=== PATIENT | female | born 1965 | race Caucasian/White ===

== ENCOUNTER → 2017-09-21 10:29 | Outpatient (CLI) | payer MEDICARE, MEDICAID, SELFPAY ==
--- NOTE | 2017-09-21 | CA_ITS ---
PROCEDURE: 2-D M-mode and color Doppler study INDICATIONS FOR THE TEST: Chest pain COPD Heart MurmurX Tobacco SmokingX Palpitations Fatigue Syncope Edema HypertensionXDiabetes Mellitus Rheumatic Fever SOB TONY Obesity Hyperlipidemia Family History HD Additional History PATIENT INFORMATION HEIGHT: 70 WEIGHT:141 GENDER: Female B/P:138/84 2-D/M-MODE INTERPRETATION: 2-D MEASUREMENTS OBSERVED VALUES IN CMS Right Ventricular Dimension (RVDd) 1.2 Interventricular Septum (Thickness)(IVsd) 1.1 Left Ventricular Internal Dimensions(LVIDd) 4.0 Left Ventricular Posterior Wall (Thickness)(LVPWd) 1.1 Aortic Root 3.4 Aortic Cusp Separation 1.5 Left Atrial Dimensions (no significant pericardial 3.3 2D 1. Left atrium is mildly enlarged, left ventricle is normal size, there is mild qualitative concentric left ventricular hypertrophy, visually estimated ejection fraction 55% with no obvious regional motion abnormality. 2. The right atrium and right ventricle are normal size and contractility. 3. The aortic valve is minimally thickened and fibrosed. 4. The mitral valve has mitral annular calcification, there is no mitral stenosis 5. The tricuspid valve is structurally normal. 6. No significant pericardial effusion noted. DOPPLER INTERROGATION: Doppler interrogation of the aortic, mitral and tricuspid valve reveals presence of mild mitral and moderate tricuspid regurgitation, calculated right ventricular systolic pressure is 46 mmHg consistent with moderate pulmonary hypertension, grade 1 diastolic dysfunction seen without tissue Doppler evidence of raised left atrial pressure. CONCLUSION: 1. Mildly enlarged left atrium, normal left ventricular size, mild qualitative concentric left ventricular hypertrophy, visually estimated ejection fraction 55% with no obvious regional wall motion abnormality, grade 1 diastolic dysfunction seen without tissue Doppler evidence of raised left atrial pressure. 2. Mild mitral and moderate tricuspid regurgitation, calculated right ventricular systolic pressure is 46 mmHg consistent with moderate pulmonary hypertension. 3. No significant pericardial effusion noted.
== END ==
PROVIDERS: PCP Family Medicine; Visit Provider Family Medicine
DX: R01.1 Cardiac murmur, unspecified (principal); I47.1 Supraventricular tachycardia
CPT/HCPCS: 93306

== ENCOUNTER → 2017-12-19 09:30 | Outpatient (CLI) | payer MEDICARE, MEDICAID, SELFPAY ==
--- NOTE | 2017-12-19 09:34 | US_ITS ---
US Arterial Ankle Brachial Ind History: ITS.REASON: claudication, leg pain, peripheral vascular disease, smoker ORDERING PHYSICIAN: Rafael Bangura MD PATIENT AGE: 52 years TECHNIQUE: Segmental pressures obtained of both right and left leg. These are compared to brachial blood pressure to yield index at each level sampled including summary DONALD. The data sheets from the procedure are available in PACS FINDINGS Rest study only performed today No prior studies available for comparison. Blood pressures reported are in millimeters mercury. RIGHT LEG DONALD = 1.2. RIGHT LEG TBI=0.6 Brachial BP: 126 Thigh BP: 138 Calf BP: 144 Ankle PT: 157 Ankle DP : 145 Digit =80 LEFT LEG DONALD = 1.0 LEFT LEG TBI= 0.5 Brachial BPD: 133 Thigh BP: 110 Calf BP: 111 Ankle PT:133 Ankle DP: 132 Digit = 66 Pulses and waveforms: Normal IMPRESSION: The ABIs as reported above are within normal limits. Waveforms and pulses are also unremarkable. The TBI's are somewhat low which may indicate small vessel disease
--- NOTE | 2017-12-19 10:04 | NM_ITS ---
History and Indications: Hypertension, tobacco use, chest pain, shortness of breath and abnormal EKG Procedure: Patient received a 0.4 mg of Lexiscan, resting heart rate was 74 bpm resting blood pressure 170/85, Lexiscan maximum heart rate achieved was 81 minute less than 85% of the maximum predicted heart rate and a blood pressure was 227/110. With Lexiscan patient complained of nausea. Electrocardiogram: Resting electrocardiogram showed sinus rhythm, with Lexiscan there is less than 1.[address] segment depression noted from the baseline EKG. The EKG portion of the Lexiscan Myoview is nondiagnostic. Cardiac stress and resting SPECT images: Cardiac stress and resting SPECT images were obtained using technetium 99 Myoview 31.6 mCi at stress and 10.2 mCi at rest. Gated SPECT for analysis of segmental wall motion and calculation of the ejection fraction also done. Cardiac stress and rest SPECT images show uniform myocardial activity without any segmental perfusion abnormality, computer derived ejection fraction is over 65% with no obvious regional wall motion abnormality, right ventricle is normal size and contractility. Conclusion: 1. The EKG portion of the Lexiscan Myoview is nondiagnostic. 2. No obvious scintigraphic evidence of reversible ischemia seen, computer derived ejection fraction is over 65% with no obvious regional wall motion abnormality, right ventricle is normal size and contractility. 3. Normal Lexiscan Myoview study.
--- NOTE | 2017-12-19 12:27 | HMH.ITSHM ---
trihexyphenidyl tolterodine PRAMIPEXOLE OMEPRAZOLE METOPROLOL LEVOTHYROXINE HALOPERIDOL GUAIFENESIN DIVALPROEX CLONAZEPAM BUSPIRONE
== END ==
PROVIDERS: PCP Family Medicine; Visit Provider Internal Medicine Cardiovascular Disease
DX: I73.9 Peripheral vascular disease, unspecified (principal); R06.09 Other forms of dyspnea; R07.89 Other chest pain; R01.1 Cardiac murmur, unspecified; R94.31 Abnormal electrocardiogram [ECG] [EKG]; I35.8 Other nonrheumatic aortic valve disorders; F17.200 Nicotine dependence, unspecified, uncomplicated
CPT/HCPCS: 78452; 93017; 93922; A9502; J2785

== ENCOUNTER → 2018-07-31 12:46 | Outpatient (CLI) | payer MEDICARE, MEDICAID, SELFPAY ==
[2018-07-31 12:48] LABS: Microscopic, Urine URINE MICROSCOPIC (MICROSCOPIC)
[2018-07-31 14:07] LABS: Appearance,Urine CLEAR (Clear); Bilirubin,Urine Negative (Negative); Blood, Urine Negative (Negative); Color,Urine YELLOW (Yellow); Glucose,Urine (UA) Negative (Negative); Ketones,Urine Negative (Negative); Leukocyte Esterase,Urine Negative (Negative); Nitrate,Urine Negative (Negative); Protein,Urine Negative (Negative); Specific Gravity, Urine <= 1.005 (1.005-1.030); Urobilinogen,Urine 0.2 EU/dl (0.2)
[2018-07-31 14:17] LABS: Bacteria,Urine Trace /lpf; Squamous Epithelial Cell,Urine Occasional #/hpf (0-5)
== END ==
PROVIDERS: Visit Provider Family Medicine
DX: Z87.440 Personal history of urinary (tract) infections (principal)
CPT/HCPCS: 81001